=== PATIENT | male | born 1950 | race Hispanic/Latino ===

== ENCOUNTER → 2018-04-23 | Outpatient (CLI) | payer OTHER ==
[2018-04-23 09:56] LABS: BASOPHILS % (AUTO) 0.9 % (0.0-5.0); EOSINOPHILS % (AUTO) 1.4 % (0.0-8.0); HEMATOCRIT 43.1 % (42-54); LYMPHOCYTES % (AUTO) 33.3 % (21.0-51.0); MEAN CORPUSCULAR HEMOGLOBIN 30.7 pg (27.0-33.0); MEAN CORPUSCULAR HGB CONC 33.3 g/dL (32.0-36.0); MEAN CORPUSCULAR VOLUME 92.2 fL (79-99); MONOCYTES % (AUTO) 8.6 % (3.0-13.0); NEUTROPHILS % (AUTO) 55.8 % (40.0-77.0); NUCLEATED RED BLOOD CELLS 0.1 % (0.0-0.19); PLATELET COUNT (AUTO) 150 K/uL (130-400); RED BLOOD CELL COUNT(AUTO) 4.67 MIL/uL (4.50-6.20); RED CELL DISTRIBUTION WIDTH 13.8 % (11.0-15.5); WHITE BLOOD COUNT (AUTO) 6.6 K/uL (4.8-10.8)
[2018-04-23 10:02] LABS: CREATININE 0.9 mg/dL (0.5-1.5); POTASSIUM 4.3 mmol/L (3.5-5.1)
== END | disposition home or self-care (01) ==
LOC: LAB 09:14
PROVIDERS: ATTEND Family Medicine
DX: R31.29 Other microscopic hematuria (principal)
CPT/HCPCS: 36415; 80048; 85025

== ENCOUNTER → 2018-05-07 | Outpatient (CLI) | payer OTHER ==
[~2018-05-07] MED LIST: IOHEXOL-350 75 ML VIAL IV ONE
== END | disposition home or self-care (01) ==
LOC: RAH 07:53
PROVIDERS: ATTEND Urology
DX: N28.1 Cyst of kidney, acquired (principal); K57.30 Diverticulosis of large intestine without perforation or abscess without bleeding; M51.36 Other intervertebral disc degeneration, lumbar region
CPT/HCPCS: 74178; Q9967

== ENCOUNTER → 2018-08-28 | Outpatient (CLI) | payer OTHER ==
[2018-08-28 13:31] LABS: CREATININE 0.9 mg/dL (0.5-1.5); POTASSIUM 4.1 mmol/L (3.5-5.1)
== END | disposition home or self-care (01) ==
LOC: RAH 12:46
PROVIDERS: ATTEND Urology
DX: C61 Malignant neoplasm of prostate (principal); M19.90 Unspecified osteoarthritis, unspecified site
CPT/HCPCS: 36415; 78306; 80048; A9503

== ENCOUNTER → 2018-08-30 | Outpatient (CLI) | payer OTHER | END | disposition home or self-care (01) | LOC: RAH 09:17 | PROVIDERS: ATTEND Urology | DX: K57.30 Diverticulosis of large intestine without perforation or abscess without bleeding (principal); M41.86 Other forms of scoliosis, lumbar region; M47.816 Spondylosis without myelopathy or radiculopathy, lumbar region | CPT/HCPCS: 74178; Q9967 ==

== ENCOUNTER 2019-04-15 06:01 | Day surgery (SDC) | payer OTHER ==
[~2019-04-15] VITALS: Ht 167.6 cm; Wt 95.3 kg
[~2019-04-15 06:01] MED LIST changes: +AMLO10TA7 PO; +BISA5TAB12 PO; -IOHEXOL-350 75 ML VIAL IV ONE; +METF-444 PO; +NITR0.4T50 SL; +RIVA20TA PO; +ROSU10TA28 PO; +SODIUM CHLORIDE 0.9% 1000ML 1,000 ML IV ONE
[2019-04-15 06:31] VITALS: BP 126/68
[2019-04-15] MEDS ORDERED: PROPOFOL 10 MG/ML 20ML VIAL IV ONE ×2 (06:37)
[2019-04-15] MEDS ORDERED: LIDOCAINE HCL 1% 20 ML VIAL ONE (06:39)
[2019-04-15 08:19] VITALS: BP 98/73
[2019-04-15 08:24] VITALS: BP 94/48
[2019-04-15 08:29] VITALS: BP 106/63
[2019-04-15 08:34] VITALS: BP 126/65
[2019-04-15 08:39] VITALS: BP 124/65
--- NOTE | 2019-04-15 08:45 | NUR ---
dc pt dc home via [place], no distress noted pt denied any pain or discomforts. accompanied by patients son. dc instructions reinforced at this time, pt /son verbalized understanding
== END 2019-04-15 08:45 | disposition home or self-care (01) ==
LOC: ENDO 06:01 → DAH 06:01 → ENDO 08:45
PROVIDERS: ATTEND Internal Medicine
DX: Z12.11 Encounter for screening for malignant neoplasm of colon (principal); D12.2 Benign neoplasm of ascending colon; D12.4 Benign neoplasm of descending colon; K63.5 Polyp of colon; K57.30 Diverticulosis of large intestine without perforation or abscess without bleeding; E78.5 Hyperlipidemia, unspecified; I10 Essential (primary) hypertension; K21.9 Gastro-esophageal reflux disease without esophagitis; I25.10 Atherosclerotic heart disease of native coronary artery without angina pectoris; N40.0 Benign prostatic hyperplasia without lower urinary tract symptoms; I48.92 Unspecified atrial flutter; Z79.899 Other long term (current) drug therapy; Z79.01 Long term (current) use of anticoagulants; Z83.3 Family history of diabetes mellitus; Z82.3 Family history of stroke; Z82.49 Family history of ischemic heart disease and other diseases of the circulatory system; Z85.46 Personal history of malignant neoplasm of prostate; Z98.890 Other specified postprocedural states; Z95.5 Presence of coronary angioplasty implant and graft
CPT/HCPCS: 45380; 45385; 82948 ×2; 88305; A4215; A4222; A4223; A4606; A4663; A6445; J2704 ×2; J7030

== ENCOUNTER → 2019-07-13 | Outpatient (CLI) | payer MEDICARE, OTHER, SELFPAY ==
[~2019-07-13] MED LIST changes: -SODIUM CHLORIDE 0.9% 1000ML 1,000 ML IV ONE
== END | disposition home or self-care (01) ==
LOC: SHCH 09:20
PROVIDERS: ATTEND Internal Medicine Cardiovascular Disease
DX: I51.7 Cardiomegaly (principal); R01.1 Cardiac murmur, unspecified
CPT/HCPCS: 93306

== ENCOUNTER → 2020-06-23 | Outpatient (CLI) | payer OTHER ==
[~2020-06-23] MED LIST changes: +AMLO-258 PO; -AMLO10TA7 PO
== END | disposition home or self-care (01) ==
LOC: SHCH 09:52
PROVIDERS: ATTEND Internal Medicine Cardiovascular Disease
DX: I08.0 Rheumatic disorders of both mitral and aortic valves (principal); I65.23 Occlusion and stenosis of bilateral carotid arteries
CPT/HCPCS: 93306; 93356; 93880

== ENCOUNTER → 2021-04-26 | Outpatient (CLI) | payer OTHER | END | disposition home or self-care (01) | LOC: RAH 13:17 | PROVIDERS: ATTEND Urology | DX: N50.3 Cyst of epididymis (principal); N43.3 Hydrocele, unspecified; R31.29 Other microscopic hematuria; N50.819 Testicular pain, unspecified | CPT/HCPCS: 76770; 76870 ==

== ENCOUNTER 2022-05-21 01:39 | Inpatient (IN) | payer MEDICARE, OTHER ==
[~2022-05-21] VITALS: Ht 167.6 cm; Wt 90.3 kg
[~2022-05-21 01:39] MED LIST changes: +BISA-151 PO; -BISA5TAB12 PO
[2022-05-21] MEDS ORDERED: VANCOMYCIN 1G VIAL IVPB ONE (03:30)
[2022-05-21] MEDS ORDERED: ZOSYN 3.375GM +NS 50ML IV ONE (03:30)
[2022-05-21] MEDS ORDERED: 0.9%NACL 1000ML 1,000 ML IV ONE (03:30)
[2022-05-21] MEDS ORDERED: VANCOMYCIN 1G/250ML KIT 250 ML IV ONE (03:51)
[2022-05-21 04:06] LABS: BASOPHILS % (AUTO) 0.6 % (0.0-5.0); EOSINOPHILS % (AUTO) 1.9 % (0.0-8.0); HEMATOCRIT 39.3 % (42-54); LYMPHOCYTES % (AUTO) 19.6 % (21.0-51.0); MEAN CORPUSCULAR HEMOGLOBIN 30.1 pg (27.0-33.0); MEAN CORPUSCULAR HGB CONC 33.1 g/dL (32.0-36.0); MONOCYTES % (AUTO) 9.3 % (3.0-13.0); NEUTROPHILS % (AUTO) 68.3 % (40.0-77.0); PLATELET COUNT (AUTO) 195 K/uL (130-400); RED BLOOD CELL COUNT(AUTO) 4.32 MIL/uL (4.50-6.20); RED CELL DISTRIBUTION WIDTH 13.2 % (11.0-15.5); WHITE BLOOD COUNT (AUTO) 9.5 K/uL (4.8-10.8)
[2022-05-21 04:16] LABS: CREATININE 0.9 mg/dL (0.5-1.5); POTASSIUM 4.1 mmol/L (3.5-5.1)
[2022-05-21 04:20] LABS: ALBUMIN 3.3 g/dL (3.5-5.0); TOTAL PROTEIN, SERUM 7.5 g/dL (6.0-8.3)
[2022-05-21 04:31] LABS: APPEARANCE,URINE CLEAR (CLEAR); BILIRUBIN,URINE NEGATIVE (NEGATIVE); COLOR,URINE LIGHT-YELLOW (YELLOW); GLUCOSE, URINE (UA) NEGATIVE (NEGATIVE); KETONES,URINE NEGATIVE (NEGATIVE); LEUKOCYTE ESTERASE ,URINE NEGATIVE Leu/uL (NEGATIVE); NITRATE,URINE NEGATIVE (NEGATIVE); OCCULT BLOOD,URINE SMALL (NEGATIVE); PH,URINE 5.5 (5.0-8.0); PROTEIN,URINE NEGATIVE (NEGATIVE); UROBILINOGEN,URINE 0.2 mg/dL (0.2-1.0)
[2022-05-21 04:38] LABS: MUCUS,URINE RARE LPF (None Seen)
[2022-05-21] MEDS ORDERED: ONDANSETRON 4MG INJ IVP PRN (06:00)
[2022-05-21] MEDS ORDERED: DEXTROSE 50%-WATER 50 ML DISP.SYRIN IV PRN (06:00)
[2022-05-21] MEDS ORDERED: ACETAMINOPHEN 650 MG SUPPOSITORY RC PRN (06:00)
[2022-05-21] MEDS: INSULIN HUMULIN R 100 UNIT/ML 3ML SQ SCH ×4 (06:00→21:00)
[2022-05-21] MEDS ORDERED: ALBUTEROL 0.083% 2.5 MG/3 ML INH IH PRN (06:00)
[2022-05-21] MEDS ORDERED: HYDRALAZINE 20MG/ML VIAL IV PRN (06:00)
[2022-05-21] MEDS ORDERED: IPRATROPIUM 0.5 MG/2.5 ML INH IH PRN (06:00)
[2022-05-21] MEDS ORDERED: PHARMACY COMMUNICATION MISC SCH ×2 (06:00→06:30)
[2022-05-21] MEDS ORDERED: GLUCAGON 1MG KIT 1 MG ML IM PRN (06:00)
[2022-05-21] MEDS: LACTATED RINGERS 1000ML 1,000 ML IV SCH ×2 (06:17→16:00)
[2022-05-21] MEDS ORDERED: VANCOMYCIN PROTOCOL PER PHARMACY IV SCH (06:30)
[2022-05-21 09:00] VITALS: BP 135/69
[2022-05-21] MEDS ORDERED: LOTREL 5/10 PO (10:25)
[2022-05-21] MEDS ORDERED: TAMS-1 PO (10:25)
[2022-05-21 11:30] VITALS: BP 135/55
[2022-05-21] MEDS: ZOSYN 3.375GM +NS 50ML IV SCH ×2 (12:31→21:48)
[2022-05-21 15:25] VITALS: BP 133/68
[2022-05-21] MEDS: VANCOMYCIN 1.25 GM/250 ML BAG 250 ML IV SCH (17:08)
[2022-05-21 20:00] VITALS: BP 134/66
[2022-05-21 23:44] VITALS: BP 127/72
[2022-05-22 03:56] VITALS: BP 131/63
[2022-05-22] MEDS: VANCOMYCIN 1.25 GM/250 ML BAG 250 ML IV SCH ×2 (04:55→18:06)
[2022-05-22] MEDS: DOCUSATE SODIUM 100 MG CAP PO SCH ×2 (04:56→09:00)
[2022-05-22] MEDS: LACTATED RINGERS 1000ML 1,000 ML IV SCH ×2 (04:56→12:00)
[2022-05-22] MEDS: ZOSYN 3.375GM +NS 50ML IV SCH ×3 (04:56→19:47)
[2022-05-22 05:43] LABS: HEMATOCRIT 38.9 % (42-54); MEAN CORPUSCULAR HEMOGLOBIN 30.6 pg (27.0-33.0); MEAN CORPUSCULAR HGB CONC 33.9 g/dL (32.0-36.0); RED BLOOD CELL COUNT(AUTO) 4.32 MIL/uL (4.50-6.20); WHITE BLOOD COUNT (AUTO) 7.8 K/uL (4.8-10.8)
[2022-05-22 06:11] LABS: ALBUMIN 2.9 g/dL (3.5-5.0); MAGNESIUM 1.7 mg/dL (1.80-2.40); PHOSPHORUS 3.4 mg/dL (2.5-4.9); POTASSIUM 3.9 mmol/L (3.5-5.1); TOTAL PROTEIN, SERUM 6.7 g/dL (6.0-8.3)
[2022-05-22] MEDS: INSULIN HUMULIN R 100 UNIT/ML 3ML SQ SCH ×4 (06:22→21:00)
[2022-05-22 07:30] VITALS: BP 132/71
[2022-05-22] MEDS: BENAZEPRIL HCL 10 MG TABLET PO SCH (09:00)
[2022-05-22] MEDS: TAMSULOSIN HCL 0.4 MG CAP.ER.24H PO SCH (09:00)
[2022-05-22] MEDS: AMLODIPINE 5 MG TAB PO SCH (09:00)
[2022-05-22] MEDS: PANTOPRAZOLE 40 MG/VIAL IVP SCH (09:39)
[2022-05-22 11:00] VITALS: BP 147/70
[2022-05-22 16:00] VITALS: BP 126/65
[2022-05-22] MEDS: ATORVASTATIN 20 MG TABLET PO SCH (19:47)
[2022-05-22 20:00] VITALS: BP 136/70
[2022-05-22 23:50] VITALS: BP 132/68
[2022-05-23] MEDS: LACTATED RINGERS 1000ML 1,000 ML IV SCH ×3 (03:40→18:18)
[2022-05-23] MEDS: ZOSYN 3.375GM +NS 50ML IV SCH ×3 (03:40→22:58)
[2022-05-23 04:31] VITALS: BP 120/68
[2022-05-23] MEDS: INSULIN HUMULIN R 100 UNIT/ML 3ML SQ SCH ×4 (05:43→21:00)
[2022-05-23 07:30] VITALS: BP 130/67
[2022-05-23] MEDS: PANTOPRAZOLE 40 MG/VIAL IVP SCH (08:41)
[2022-05-23] MEDS: BENAZEPRIL HCL 10 MG TABLET PO SCH (09:00)
[2022-05-23] MEDS: TAMSULOSIN HCL 0.4 MG CAP.ER.24H PO SCH (09:00)
[2022-05-23] MEDS: AMLODIPINE 5 MG TAB PO SCH (09:00)
[2022-05-23] MEDS: VANCOMYCIN 1.25 GM/250 ML BAG 250 ML IV SCH ×2 (09:00→20:48)
[2022-05-23] MEDS: DOCUSATE SODIUM 100 MG CAP PO SCH (09:00)
[2022-05-23] MEDS ORDERED: POTASSIUM CHLORIDE 10MEQ/100ML 100 ML IV PRN (09:30)
[2022-05-23] MEDS ORDERED: LIDOCAINE HCL-MPF 1% 2ML VIAL IV PRN ×2 (09:30)
[2022-05-23] MEDS ORDERED: KCL 20 MEQ ERTAB PO PRN (09:30)
[2022-05-23] MEDS ORDERED: POTASSIUM CHLORIDE 20MEQ/100ML 100 ML IV PRN ×3 (09:30)
[2022-05-23] MEDS ORDERED: POTASSIUM CHLORIDE 10% ELIXIR 20 MEQ/15 ML UDCUP PO PRN (09:30)
[2022-05-23 11:00] VITALS: BP 125/69
[2022-05-23 16:00] VITALS: BP 128/66
[2022-05-23] MEDS: ATORVASTATIN 20 MG TABLET PO SCH (20:49)
[2022-05-23 21:34] VITALS: BP 114/59
[2022-05-24] VITALS (23 sets, daily range): BP systolic 99–147; BP diastolic 55–93
[2022-05-24] MEDS ORDERED: BUPIVACAINE/PF 0.5% 30ML VIAL INJ ONE
[2022-05-24] MEDS: LACTATED RINGERS 1000ML 1,000 ML IV SCH ×3 (04:00→23:12)
[2022-05-24] MEDS: ZOSYN 3.375GM +NS 50ML IV SCH ×3 (04:52→19:59)
[2022-05-24 05:41] LABS: BASOPHILS % (AUTO) 0.6 % (0.0-5.0); HEMATOCRIT 36.2 % (42-54); LYMPHOCYTES % (AUTO) 14.1 % (21.0-51.0); MEAN CORPUSCULAR HEMOGLOBIN 30.7 pg (27.0-33.0); MEAN CORPUSCULAR HGB CONC 33.7 g/dL (32.0-36.0); MEAN CORPUSCULAR VOLUME 91.2 fL (79-99); MONOCYTES % (AUTO) 8.6 % (3.0-13.0); PLATELET COUNT (AUTO) 175 K/uL (130-400); RED BLOOD CELL COUNT(AUTO) 3.97 MIL/uL (4.50-6.20); RED CELL DISTRIBUTION WIDTH 13.3 % (11.0-15.5)
[2022-05-24 05:50] LABS: CREATININE 2.2 mg/dL (0.5-1.5); POTASSIUM 3.9 mmol/L (3.5-5.1)
[2022-05-24] MEDS: INSULIN HUMULIN R 100 UNIT/ML 3ML SQ SCH ×4 (06:08→20:02)
[2022-05-24] MEDS: PANTOPRAZOLE 40 MG/VIAL IVP SCH (08:48)
[2022-05-24] MEDS: BENAZEPRIL HCL 10 MG TABLET PO SCH (08:48)
[2022-05-24] MEDS: AMLODIPINE 5 MG TAB PO SCH (08:48)
[2022-05-24] MEDS: TAMSULOSIN HCL 0.4 MG CAP.ER.24H PO SCH (08:48)
[2022-05-24] MEDS: DOCUSATE SODIUM 100 MG CAP PO SCH (08:48)
[2022-05-24] MEDS: VANCOMYCIN 1.25 GM/250 ML BAG 250 ML IV SCH ×2 (08:49→19:59)
[2022-05-24] MEDS ORDERED: 0.9%NACL 1000ML 1,000 ML IV ONE (13:35)
[2022-05-24] MEDS ORDERED: BUPIVACAINE/PF 0.25% 30ML VIAL IJ ONE (14:19)
[2022-05-24] MEDS ORDERED: FENTANYL CITRATE PF 50 MCG/1 ML 2ML VIAL ONE ×2 (15:50→16:34)
[2022-05-24] MEDS ORDERED: PROPOFOL 10 MG/ML 20ML VIAL IV ONE (15:50)
[2022-05-24] MEDS ORDERED: MIDAZOLAM HCL 1 MG/ML 2ML VIAL ONE (15:50)
[2022-05-24] MEDS ORDERED: ROCURONIUM 10MG/1ML SYR 10 MG/ML ML ONE (16:02)
[2022-05-24] MEDS ORDERED: MEPERIDINE-PF 25 MG/ML SYG ONE (16:08)
[2022-05-24] MEDS ORDERED: ONDANSETRON 4MG INJ ONE (16:09)
[2022-05-24] MEDS ORDERED: SUCCINYLCHOLINE 200MG/10ML SYR ONE (16:21)
[2022-05-24] MEDS ORDERED: CEFAZOLIN SODIUM 1 GM VIAL ONE (16:21)
[2022-05-24] MEDS: MORPHINE 2 MG SYG IVP PRN (18:44)
[2022-05-24] MEDS: ATORVASTATIN 20 MG TABLET PO SCH (19:59)
[2022-05-25 04:00] VITALS: BP 133/73
[2022-05-25] MEDS: ZOSYN 3.375GM +NS 50ML IV SCH (04:27)
[2022-05-25 04:30] LABS: BASOPHILS % (AUTO) 0.7 % (0.0-5.0); EOSINOPHILS % (AUTO) 1.1 % (0.0-8.0); HEMATOCRIT 37.6 % (42-54); LYMPHOCYTES % (AUTO) 19.5 % (21.0-51.0); MEAN CORPUSCULAR HEMOGLOBIN 30.3 pg (27.0-33.0); MEAN CORPUSCULAR VOLUME 91.9 fL (79-99); MONOCYTES % (AUTO) 8.5 % (3.0-13.0); NEUTROPHILS % (AUTO) 69.8 % (40.0-77.0); PLATELET COUNT (AUTO) 190 K/uL (130-400); RED BLOOD CELL COUNT(AUTO) 4.09 MIL/uL (4.50-6.20); RED CELL DISTRIBUTION WIDTH 13.3 % (11.0-15.5); WHITE BLOOD COUNT (AUTO) 8.9 K/uL (4.8-10.8)
[2022-05-25 04:51] LABS: POTASSIUM 4.3 mmol/L (3.5-5.1)
[2022-05-25] MEDS: INSULIN HUMULIN R 100 UNIT/ML 3ML SQ SCH ×4 (05:46→19:58)
[2022-05-25 07:30] VITALS: BP 145/76
[2022-05-25] MEDS: BENAZEPRIL HCL 10 MG TABLET PO SCH (09:20)
[2022-05-25] MEDS: PANTOPRAZOLE 40 MG/VIAL IVP SCH (09:20)
[2022-05-25] MEDS: TAMSULOSIN HCL 0.4 MG CAP.ER.24H PO SCH (09:20)
[2022-05-25] MEDS: AMLODIPINE 5 MG TAB PO SCH (09:21)
[2022-05-25] MEDS: DOCUSATE SODIUM 100 MG CAP PO SCH (09:21)
[2022-05-25] MEDS: LACTATED RINGERS 1000ML 1,000 ML IV SCH ×2 (10:00→19:58)
[2022-05-25 11:00] VITALS: BP 142/72
[2022-05-25] MEDS: CEFEPIME HCL 2 GM VIAL IVP SCH ×2 (12:24→19:58)
[2022-05-25 16:00] VITALS: BP 133/54
[2022-05-25] MEDS: ATORVASTATIN 20 MG TABLET PO SCH (19:58)
[2022-05-25 20:00] VITALS: BP 148/73
[2022-05-26] VITALS: BP_SYST 114; BP_SYST 155; BP_DIAS 48; BP_DIAS 94
[2022-05-26] MEDS: MORPHINE 2 MG SYG IVP PRN (00:48)
[2022-05-26 04:00] VITALS: BP 132/69
[2022-05-26] MEDS: INSULIN HUMULIN R 100 UNIT/ML 3ML SQ SCH (05:51)
[2022-05-26 06:15] LABS: BASOPHILS % (AUTO) 0.5 % (0.0-5.0); EOSINOPHILS % (AUTO) 1.9 % (0.0-8.0); HEMATOCRIT 35.8 % (42-54); LYMPHOCYTES % (AUTO) 17.4 % (21.0-51.0); MEAN CORPUSCULAR HEMOGLOBIN 30.1 pg (27.0-33.0); MEAN CORPUSCULAR HGB CONC 33.2 g/dL (32.0-36.0); MEAN CORPUSCULAR VOLUME 90.6 fL (79-99); MONOCYTES % (AUTO) 9.9 % (3.0-13.0); NEUTROPHILS % (AUTO) 69.8 % (40.0-77.0); PLATELET COUNT (AUTO) 187 K/uL (130-400); RED BLOOD CELL COUNT(AUTO) 3.95 MIL/uL (4.50-6.20); RED CELL DISTRIBUTION WIDTH 13.2 % (11.0-15.5); WHITE BLOOD COUNT (AUTO) 7.8 K/uL (4.8-10.8)
[2022-05-26 06:27] LABS: CREATININE 1.9 mg/dL (0.5-1.5); POTASSIUM 3.8 mmol/L (3.5-5.1)
[2022-05-26 07:30] VITALS: BP 148/90
[2022-05-26] MEDS: BENAZEPRIL HCL 10 MG TABLET PO SCH (09:14)
[2022-05-26] MEDS: DOCUSATE SODIUM 100 MG CAP PO SCH (09:14)
[2022-05-26] MEDS: TAMSULOSIN HCL 0.4 MG CAP.ER.24H PO SCH (09:14)
[2022-05-26] MEDS: AMLODIPINE 5 MG TAB PO SCH (09:14)
[2022-05-26] MEDS: CEFEPIME HCL 2 GM VIAL IVP SCH (09:14)
[2022-05-26] MEDS: PANTOPRAZOLE 40 MG/VIAL IVP SCH (09:14)
[2022-05-26 11:00] VITALS: BP 169/79
[2022-05-26] MEDS ORDERED: DOXY100C5 PO (11:48)
== END 2022-05-26 13:00 | disposition home or self-care (01) | DRG 603 ==
LOC: EDH 01:39 → OBSVTOIN 05:49 → EDHIP 05:49 → 4DH 09:15
PROVIDERS: ADMIT Internal Medicine Critical Care Medicine; ATTEND Internal Medicine Critical Care Medicine
PROC: 0J9B0ZZ Drainage of Perineum Subcutaneous Tissue and Fascia, Open Approach (ICD-10-PCS; principal; 2022-05-24 16:09)
DX: L03.315 Cellulitis of perineum (principal); I48.20 Chronic atrial fibrillation, unspecified; N17.9 Acute kidney failure, unspecified; Z20.822 Contact with and (suspected) exposure to COVID-19; L02.215 Cutaneous abscess of perineum; E11.51 Type 2 diabetes mellitus with diabetic peripheral angiopathy without gangrene; F12.90 Cannabis use, unspecified, uncomplicated; F17.210 Nicotine dependence, cigarettes, uncomplicated; I25.10 Atherosclerotic heart disease of native coronary artery without angina pectoris; E66.01 Morbid (severe) obesity due to excess calories; E78.00 Pure hypercholesterolemia, unspecified; I10 Essential (primary) hypertension; Z83.3 Family history of diabetes mellitus; Z85.46 Personal history of malignant neoplasm of prostate; Z82.49 Family history of ischemic heart disease and other diseases of the circulatory system; Z95.5 Presence of coronary angioplasty implant and graft; Z79.01 Long term (current) use of anticoagulants; Z79.899 Other long term (current) drug therapy; Z79.84 Long term (current) use of oral hypoglycemic drugs; Z68.32 Body mass index [BMI] 32.0-32.9, adult
CPT/HCPCS: 36415; 74176; 76870; 80048; 80053; 80202; 81001; 82550; 82948; 83605; 83735; 84100; 84145; 84484; 85025; 85027; 86850; 86900; 86901; 87040; 87070; 87076; 87077; 87186; 87205; 87635; 93005; 99291; C9113; G0378; J0330; J0690; J0692; J2175; J2250; J2405; J2543; J2704; J3010; J3370; J3490; J7030; J7120

== ENCOUNTER → 2022-06-13 | Outpatient (CLI) | payer OTHER ==
[~2022-06-13] MED LIST changes: -AMLO-258 PO; -BISA-151 PO; +DOXY100C5 PO; +LOTREL 5/10 PO; +TAMS-1 PO
== END | disposition home or self-care (01) ==
LOC: WHH 10:18
PROVIDERS: ATTEND Family Medicine
DX: T81.31XA Disruption of external operation (surgical) wound, not elsewhere classified, initial encounter (principal); N49.3 Fournier gangrene; E11.52 Type 2 diabetes mellitus with diabetic peripheral angiopathy with gangrene; I96 Gangrene, not elsewhere classified; I10 Essential (primary) hypertension; E78.00 Pure hypercholesterolemia, unspecified; I48.20 Chronic atrial fibrillation, unspecified; E66.9 Obesity, unspecified; I25.10 Atherosclerotic heart disease of native coronary artery without angina pectoris; F17.210 Nicotine dependence, cigarettes, uncomplicated; F12.929 Cannabis use, unspecified with intoxication, unspecified; F17.200 Nicotine dependence, unspecified, uncomplicated; Z68.33 Body mass index [BMI] 33.0-33.9, adult; Z79.899 Other long term (current) drug therapy; Z79.84 Long term (current) use of oral hypoglycemic drugs; Z95.5 Presence of coronary angioplasty implant and graft; Z85.46 Personal history of malignant neoplasm of prostate; Y92.238 Other place in hospital as the place of occurrence of the external cause; Y83.8 Other surgical procedures as the cause of abnormal reaction of the patient, or of later complication, without mention of misadventure at the time of the procedure
CPT/HCPCS: G0463

== ENCOUNTER → 2022-06-20 | Outpatient (CLI) | payer OTHER ==
[~2022-06-20] MED LIST changes: +LIDOCAINE HCL 4% LTA SOL 4 ML VIAL TP ONE
== END | disposition home or self-care (01) ==
LOC: WHH 09:04
PROVIDERS: ATTEND Family Medicine
DX: T81.31XD Disruption of external operation (surgical) wound, not elsewhere classified, subsequent encounter (principal); N49.3 Fournier gangrene; E11.52 Type 2 diabetes mellitus with diabetic peripheral angiopathy with gangrene; I96 Gangrene, not elsewhere classified; I10 Essential (primary) hypertension; E78.00 Pure hypercholesterolemia, unspecified; I48.20 Chronic atrial fibrillation, unspecified; E66.9 Obesity, unspecified; I25.10 Atherosclerotic heart disease of native coronary artery without angina pectoris; F17.210 Nicotine dependence, cigarettes, uncomplicated; F12.929 Cannabis use, unspecified with intoxication, unspecified; F17.200 Nicotine dependence, unspecified, uncomplicated; Z68.33 Body mass index [BMI] 33.0-33.9, adult; Z79.899 Other long term (current) drug therapy; Z79.84 Long term (current) use of oral hypoglycemic drugs; Z95.5 Presence of coronary angioplasty implant and graft; Z85.46 Personal history of malignant neoplasm of prostate; Y83.8 Other surgical procedures as the cause of abnormal reaction of the patient, or of later complication, without mention of misadventure at the time of the procedure
CPT/HCPCS: G0463

== ENCOUNTER → 2022-07-04 | Outpatient (CLI) | payer OTHER ==
[~2022-07-04] MED LIST changes: -LIDOCAINE HCL 4% LTA SOL 4 ML VIAL TP ONE
== END | disposition home or self-care (01) ==
LOC: WHH 08:42
PROVIDERS: ATTEND Family Medicine
DX: T81.31XD Disruption of external operation (surgical) wound, not elsewhere classified, subsequent encounter (principal); N49.3 Fournier gangrene; E11.52 Type 2 diabetes mellitus with diabetic peripheral angiopathy with gangrene; I96 Gangrene, not elsewhere classified; I10 Essential (primary) hypertension; E78.00 Pure hypercholesterolemia, unspecified; I48.20 Chronic atrial fibrillation, unspecified; E66.9 Obesity, unspecified; I25.10 Atherosclerotic heart disease of native coronary artery without angina pectoris; F17.210 Nicotine dependence, cigarettes, uncomplicated; F12.929 Cannabis use, unspecified with intoxication, unspecified; Z68.33 Body mass index [BMI] 33.0-33.9, adult; Z79.899 Other long term (current) drug therapy; Z79.84 Long term (current) use of oral hypoglycemic drugs; Z95.5 Presence of coronary angioplasty implant and graft; Z85.46 Personal history of malignant neoplasm of prostate; Y83.8 Other surgical procedures as the cause of abnormal reaction of the patient, or of later complication, without mention of misadventure at the time of the procedure
CPT/HCPCS: G0463

== ENCOUNTER → 2022-10-06 | Outpatient (CLI) | payer OTHER ==
[~2022-10-06] MED LIST changes: +REGADENOSON 0.4 MG/5 ML PF SYG IVP SCH
== END | disposition home or self-care (01) ==
LOC: SHCH 08:30
PROVIDERS: ATTEND Internal Medicine Cardiovascular Disease
DX: I48.20 Chronic atrial fibrillation, unspecified (principal); I10 Essential (primary) hypertension; E78.5 Hyperlipidemia, unspecified; I25.10 Atherosclerotic heart disease of native coronary artery without angina pectoris; Z95.5 Presence of coronary angioplasty implant and graft; Z79.01 Long term (current) use of anticoagulants; Z79.899 Other long term (current) drug therapy
CPT/HCPCS: 78452; 96374; 93017; J2785; A9500 ×2

== ENCOUNTER → 2022-11-06 | Outpatient (CLI) | payer OTHER ==
[~2022-11-06] MED LIST changes: -REGADENOSON 0.4 MG/5 ML PF SYG IVP SCH
== END | disposition home or self-care (01) ==
LOC: SHCH 10:05
PROVIDERS: ATTEND Internal Medicine Cardiovascular Disease
DX: I73.9 Peripheral vascular disease, unspecified (principal); I48.20 Chronic atrial fibrillation, unspecified
CPT/HCPCS: 93925

== ENCOUNTER 2022-12-05 06:55 | Day surgery (SDC) | payer OTHER ==
[2022-12-04 14:49] LABS: BASOPHILS % (AUTO) 0.8 % (0.0-5.0); EOSINOPHILS % (AUTO) 1.6 % (0.0-8.0); HEMATOCRIT 40.3 % (42-54); LYMPHOCYTES % (AUTO) 23.6 % (21.0-51.0); MEAN CORPUSCULAR HEMOGLOBIN 29.1 pg (27.0-33.0); MEAN CORPUSCULAR HGB CONC 31.5 g/dL (32.0-36.0); MEAN CORPUSCULAR VOLUME 92.2 fL (79-99); MONOCYTES % (AUTO) 8.1 % (3.0-13.0); NEUTROPHILS % (AUTO) 65.7 % (40.0-77.0); PLATELET COUNT (AUTO) 173 K/uL (130-400); RED BLOOD CELL COUNT(AUTO) 4.37 MIL/uL (4.50-6.20); WHITE BLOOD COUNT (AUTO) 6.4 K/uL (4.8-10.8)
[2022-12-04 14:51] LABS: APPEARANCE,URINE CLEAR (CLEAR); BILIRUBIN,URINE NEGATIVE (NEGATIVE); COLOR,URINE LIGHT-YELLOW (YELLOW); GLUCOSE, URINE (UA) NEGATIVE (NEGATIVE); KETONES,URINE NEGATIVE (NEGATIVE); LEUKOCYTE ESTERASE ,URINE NEGATIVE Leu/uL (NEGATIVE); NITRATE,URINE NEGATIVE (NEGATIVE); OCCULT BLOOD,URINE SMALL (NEGATIVE); PH,URINE 5.5 (5.0-8.0); PROTEIN,URINE NEGATIVE (NEGATIVE); UROBILINOGEN,URINE 0.2 mg/dL (0.2-1.0)
[2022-12-04 14:53] LABS: MUCUS,URINE RARE LPF (None Seen); WBC,URINE 0-1 /HPF (0-1)
[2022-12-04 14:58] LABS: CREATININE 1.1 mg/dL (0.5-1.5); POTASSIUM 4.1 mmol/L (3.5-5.1)
[2022-12-04 14:59] LABS: INR 1.24 (0.85-1.15); PROTHROMBIN TIME 13.4 SEC (9.6-11.6)
[2022-12-04 15:01] LABS: PARTIAL THROMBOPLASTIN TIME 44.1 SEC (26.3-35.5)
[2022-12-04 15:26] LABS: B-TYPE NATRIURETIC PEPTIDE 72 pg/mL (0-100)
[2022-12-04 15:40] VITALS: BP 154/75
[~2022-12-05] VITALS: Ht 167.6 cm; Wt 98.0 kg
[2022-12-05] VITALS (12 sets, daily range): BP systolic 99–154; BP diastolic 56–94
[~2022-12-05 06:55] MED LIST changes: +0.9% NACL 500ML IV.SOLN 500 ML IV SCH; -DOXY100C5 PO; -LOTREL 5/10 PO; +PANT40TA54 PO; +SILD100T PO; +[UNRECOGNIZED DRUG - OTHER] PO
[2022-12-05] MEDS ORDERED: 0.9%NACL 1000ML 1,000 ML IV ONE (08:08)
[2022-12-05] MEDS ORDERED: LIDOCAINE HCL 400MG/20ML VIAL ONE (11:44)
[2022-12-05] MEDS ORDERED: HEPARIN 10,000 UNIT/10ML (1,000 UNIT/ML) VIAL ONE (11:44)
[2022-12-05] MEDS ORDERED: NITROGLYCERIN 50MG VIAL ONE (11:44)
[2022-12-05] MEDS ORDERED: SODIUM BICARB 50MEQ 50ML VIAL 50 ML ONE (11:44)
[2022-12-05] MEDS ORDERED: IOHEXOL-350 50ML VIAL IV ONE (11:45)
[2022-12-05] MEDS ORDERED: IOHEXOL 350 MG/ML 100ML INFUS..BTL IV ONE (11:45)
[2022-12-05] MEDS ORDERED: NICARDIPINE 25MG INJ IV ONE (12:05)
[2022-12-05] MEDS ORDERED: MEPERIDINE-PF 25 MG/ML SYG ONE ×2 (12:08→12:27)
[2022-12-05] MEDS ORDERED: ATROPINE 1MG SYG IVP ONE ×2 (12:08→14:05)
[2022-12-05] MEDS ORDERED: MIDAZOLAM HCL 1 MG/ML 2ML VIAL ONE ×2 (12:08→12:28)
[2022-12-05] MEDS ORDERED: 0.9%NACL 1000ML 1,000 ML IV SCH (13:00)
[2022-12-05] MEDS ORDERED: ATROPINE 1MG SYG IVP PRN (14:30)
[2022-12-05] MEDS ORDERED: ATROPINE 1MG SYG IVP SCH (14:30)
== END 2022-12-05 19:00 | disposition home or self-care (01) ==
LOC: DAH 06:55
PROVIDERS: ATTEND Internal Medicine Cardiovascular Disease
DX: I25.119 Atherosclerotic heart disease of native coronary artery with unspecified angina pectoris (principal); T82.855A Stenosis of coronary artery stent, initial encounter; I48.20 Chronic atrial fibrillation, unspecified; I11.0 Hypertensive heart disease with heart failure; I50.32 Chronic diastolic (congestive) heart failure; E78.5 Hyperlipidemia, unspecified; Z95.5 Presence of coronary angioplasty implant and graft; Z79.01 Long term (current) use of anticoagulants; Z79.899 Other long term (current) drug therapy; Z79.84 Long term (current) use of oral hypoglycemic drugs; Z82.49 Family history of ischemic heart disease and other diseases of the circulatory system; Y83.8 Other surgical procedures as the cause of abnormal reaction of the patient, or of later complication, without mention of misadventure at the time of the procedure; Y92.89 Other specified places as the place of occurrence of the external cause
CPT/HCPCS: 80048; 83880; 85025; 85610; 85730; 81001; 36415; 71045; 93005; 93458; C1769; C1894 ×2; C1760; J3490 ×4; J7030; J0461; J1644 ×2; J2250 ×2; J2175 ×2; Q9967; A4215; A4222; A4221; A4663; A4216; A4606; Q9965; A4223 ×3; 99156; 99157

== ENCOUNTER 2024-01-03 06:04 | Day surgery (SDC) | payer OTHER ==
[2024-01-03] VITALS (11 sets, daily range): BP systolic 104–136; BP diastolic 55–67; PULSE 44–69; RESP 13–16
[~2024-01-03] VITALS: Ht 165.1 cm; Wt 95.3 kg
[~2024-01-03 06:04] MED LIST changes: -0.9% NACL 500ML IV.SOLN 500 ML IV SCH; -ROSU10TA28 PO; +ROSU10TA72 PO
[2024-01-03] MEDS: 0.9%NACL 1000ML 1,000 ML IV ONE (07:02)
[2024-01-03] MEDS ORDERED: PROPOFOL 10 MG/ML 20ML VIAL IV ONE (07:59)
== END 2024-01-03 09:35 | disposition home or self-care (01) ==
LOC: DAH 06:04
PROVIDERS: ATTEND Internal Medicine Gastroenterology
DX: R19.5 Other fecal abnormalities (principal); K64.1 Second degree hemorrhoids; K57.30 Diverticulosis of large intestine without perforation or abscess without bleeding; I10 Essential (primary) hypertension; I25.10 Atherosclerotic heart disease of native coronary artery without angina pectoris; K21.9 Gastro-esophageal reflux disease without esophagitis; E11.9 Type 2 diabetes mellitus without complications; E78.5 Hyperlipidemia, unspecified; I48.20 Chronic atrial fibrillation, unspecified; Z86.010 Personal history of colon polyps; Z79.899 Other long term (current) drug therapy
CPT/HCPCS: 45378; 82948 ×2; J7030; J2704; A4620; A4215 ×2; A4223; A4222; A4221; A4663; A4606; J3490

== ENCOUNTER 2025-03-25 05:46 | Day surgery (SDC) | payer OTHER ==
[2025-03-25] VITALS (13 sets, daily range): BP systolic 107–159; BP diastolic 64–94; PULSE 56–75; RESP 12–18; TEMP 97–98.3
[~2025-03-25] VITALS: Ht 165.1 cm; Wt 95.3 kg
[~2025-03-25 05:46] MED LIST changes: -TAMS-1 PO; +TAMS-55 PO
[2025-03-25] MEDS ORDERED: LOSA25TA41 PO (06:52)
[2025-03-25] MEDS ORDERED: BISA-151 PO (06:52)
[2025-03-25] MEDS ORDERED: ASPI-1197 PO (06:52)
[2025-03-25] MEDS ORDERED: RANO500T6 PO (06:52)
[2025-03-25] MEDS: 0.9%NACL 1000ML 1,000 ML IV ONE (06:56)
== END 2025-03-25 09:35 | disposition home or self-care (01) ==
LOC: DAH 05:46
PROVIDERS: ATTEND Internal Medicine Gastroenterology
DX: R19.5 Other fecal abnormalities (principal); D12.2 Benign neoplasm of ascending colon; D12.3 Benign neoplasm of transverse colon; D12.5 Benign neoplasm of sigmoid colon; K57.30 Diverticulosis of large intestine without perforation or abscess without bleeding; K64.0 First degree hemorrhoids; I10 Essential (primary) hypertension; E78.5 Hyperlipidemia, unspecified; I48.20 Chronic atrial fibrillation, unspecified; I25.10 Atherosclerotic heart disease of native coronary artery without angina pectoris; E11.9 Type 2 diabetes mellitus without complications; K21.9 Gastro-esophageal reflux disease without esophagitis; Z79.82 Long term (current) use of aspirin; Z79.84 Long term (current) use of oral hypoglycemic drugs; Z95.5 Presence of coronary angioplasty implant and graft; Z85.46 Personal history of malignant neoplasm of prostate; Z79.899 Other long term (current) drug therapy
CPT/HCPCS: 82948 ×2; 45380; 45385; J7030 ×2; J2704; A4620; A7002; J3490

== ENCOUNTER → 2025-04-24 | Outpatient (CLI) | payer OTHER ==
[~2025-04-24] MED LIST changes: +ASPI-1197 PO; +BISA-151 PO; +LOSA25TA41 PO; -NITR0.4T50 SL; +RANO500T6 PO; -SILD100T PO
[2025-04-24 11:10] LABS: CREATININE 1.1 mg/dL (0.5-1.3); GLOMERULAR FILTR. RATE CALC 70.0 mL/min (>90); UREA NITROGEN, BLOOD 18.0 mg/dL (7-18)
== END | disposition home or self-care (01) ==
LOC: LAB 09:42
PROVIDERS: ATTEND Internal Medicine Gastroenterology
DX: R10.11 Right upper quadrant pain (principal)
CPT/HCPCS: 36415; 82565; 84520

== ENCOUNTER → 2025-04-27 | Outpatient (CLI) | payer OTHER ==
[~2025-04-27] MED LIST changes: +IOHEXOL-350 75 ML VIAL IV ONE; -ROSU10TA72 PO; +ROSU10TA98 PO
--- NOTE | 2025-04-28 11:21 | HMCIMG ---
EXAMINATION: CT Abdomen without and with contrast. CLINICAL HISTORY: Right upper quadrant pain/abdominal swelling, mass and lump, Abnormal findings on diagnostic. TECHNIQUE: Multiple contiguous axial CT images were obtained through the abdomen following the administration of intravenous contrast. Coronal and sagittal reconstructions were also obtained. COMPARISON: Prior CT abdomen and pelvis on 05/21/2022. FINDINGS: Included chest reveals chronic obstructive pulmonary disease changes. Subpleural ground glassing with interseptal thickening in both lower lobes. The liver is normal in caliber with uniform normal density. There are no focal hepatic lesions. Stable right renal cortical cysts, the largest measuring 1.7 x 1.5 x 1.5 cm in craniocaudal, AP, and transverse dimensions respectively. The gallbladder, spleen, pancreas, and adrenal glands appear within normal limits. Bowel loops are normal in caliber without evidence of obstruction, ileus, or obvious bowel wall thickening. There is no ascites or lymphadenopathy. The opacified abdominal vessels are patent. There are atheromatous wall calcification of the aorta and iliac arteries. No acute or suspicious osseous abnormality. There are multilevel moderate degenerative spondylotic changes of the spine. Anterior listhesis of L4 in relation to L5. IMPRESSION: Stable right renal cortical cysts. No renal stones. No hydronephrosis. Otherwise, markable contrast-enhanced CT of the abdomen. /Malvin
== END | disposition home or self-care (01) ==
LOC: RAH 10:47
PROVIDERS: ATTEND Internal Medicine Gastroenterology
DX: N28.1 Cyst of kidney, acquired (principal); I70.0 Atherosclerosis of aorta; J44.9 Chronic obstructive pulmonary disease, unspecified; M47.817 Spondylosis without myelopathy or radiculopathy, lumbosacral region; M43.17 Spondylolisthesis, lumbosacral region; R10.11 Right upper quadrant pain; R19.01 Right upper quadrant abdominal swelling, mass and lump; R93.2 Abnormal findings on diagnostic imaging of liver and biliary tract
CPT/HCPCS: 74170; Q9967